=== PATIENT | male | born 1960 | race Caucasian/White ===

== ENCOUNTER → 2024-05-12 16:50 | Outpatient (REF) | payer OTHER, SELFPAY | LOC: HWRAD 16:50 | PROVIDERS: ATTENDING PHYSICIAN Orthopaedic Surgery; FAMILY PHYSICIAN Family Medicine | DX: M25.521 Pain in right elbow (principal) | CPT/HCPCS: 70030 ==

== ENCOUNTER → 2024-05-20 07:25 | Outpatient (REF) | payer OTHER, SELFPAY | LOC: HWRAD 07:25 | PROVIDERS: ATTENDING PHYSICIAN Orthopaedic Surgery; FAMILY PHYSICIAN Family Medicine | DX: M25.521 Pain in right elbow (principal) | CPT/HCPCS: 73200 ==

== ENCOUNTER 2025-02-23 06:18 | Day surgery (SDC) | payer BC, SELFPAY | END 2025-02-23 08:44 | disposition home or self-care (01) | LOC: GI 06:18 | PROVIDERS: ATTENDING PHYSICIAN Internal Medicine Gastroenterology | DX: Z12.11 Encounter for screening for malignant neoplasm of colon (principal); K57.30 Diverticulosis of large intestine without perforation or abscess without bleeding; K64.8 Other hemorrhoids | CPT/HCPCS: G0121 ==